=== PATIENT | female | born 1980 | race Caucasian/White ===

== ENCOUNTER 2023-10-12 20:43 | Outpatient (CLI) | payer OTHER, SELFPAY ==
[2023-10-12 16:05] LABS: Abs Immature Grans 0.02 10^3/uL (0.0-0.06); Absolute Basophil Count 0.04 10^3/uL (0.0-0.2); Absolute Eosinophil Count 0.04 10^3/uL (0.0-0.7); Absolute Lymphocyte Count 1.39 10^3/uL (1.2-3.4); Absolute Monocyte Count 0.46 10^3/uL (0.1-0.8); Absolute Neutrophil Count 3.82 10^3/uL (1.2-6.7); Basophils % 0.7; Eosinophils % 0.7; HGB 12.8 g/dL (11.2-15.7); Immature Grans % 0.3; Lymphocytes % 24.1; MCH 30.1 pg (27.0-33.0); MCHC 34.6 % (32.0-36.0); MCV 87 fL (80-95); MPV 10.1 fL (8.0-11.0); Neutrophils % 66.2; Platelet Count 190 10^3/uL (130-400); RBC 4.25 10^6/uL (3.93-5.22); RDW 12.1 % (11.7-14.6); WBC 5.77 10^3/uL (4.4-10.8)
[2023-10-12 16:06] LABS: Bilirubin Negative (Negative); Blood Negative (Negative); Clarity Clear (Clear); Glucose Negative (Negative); Ketones Trace mg/dL (Negative); Leukocyte Esterase Negative (Negative); Nitrite Negative (Negative)
[2023-10-14 12:38] LABS: C3 Complement 69 mg/dL (81-157); C4 Complement 10 mg/dL (13-39)
[2023-10-16 12:08] LABS: dsDNA Ab, IgG 253.5 IU/mL (<30.0)
[2023-10-16 13:08] LABS: SS-A Antibody 113.3 Units (<20.0); SS-B (La) Ab, IgG 2.7 Units (<20.0)
== END 2023-10-12 20:44 | disposition home or self-care (01) ==
LOC: LBO 20:44
PROVIDERS: Visit Provider Internal Medicine Rheumatology
DX: M35.9 Systemic involvement of connective tissue, unspecified (principal); R76.8 Other specified abnormal immunological findings in serum
CPT/HCPCS: 36415; 81003; 85025; 86160; 86225; 86235

== ENCOUNTER 2024-10-11 04:27 | Outpatient (CLI) | payer OTHER, SELFPAY ==
[2024-10-11 08:50] LABS: Absolute Basophil Count 0.03 10^3/uL (0.0-0.2); Absolute Eosinophil Count 0.05 10^3/uL (0.0-0.7); Absolute Lymphocyte Count 0.79 10^3/uL (1.2-3.4); Absolute Monocyte Count 0.35 10^3/uL (0.1-0.8); Absolute Neutrophil Count 1.93 10^3/uL (1.2-6.7); Eosinophils % 1.6 %; HCT 37.5 % (36.0-46.0); HGB 12.9 g/dL (11.2-15.7); Lymphocytes % 25.1 %; MCH 30.9 pg (27.0-33.0); MCHC 34.4 % (32.0-36.0); MCV 90 fL (80-95); MPV 9.9 fL (8.0-11.0); Monocytes % 11.1 %; Neutrophils % 61.2 %; Platelet Count 177 10^3/uL (130-400); RBC 4.17 10^6/uL (3.93-5.22); RDW 11.7 % (11.7-14.6); RDW-SD 37.8 fL; WBC 3.15 10^3/uL (4.4-10.8)
[2024-10-11 09:04] LABS: Bilirubin Negative (Negative); Blood Moderate (Negative); Clarity Clear (Clear); Glucose Negative (Negative); Ketones Negative (Negative); Leukocyte Esterase Trace (Negative); Nitrite Negative (Negative); Specific Gravity 1.015 (1.005-1.025); Urobilinogen 0.2 mg/dL (Up to 0.2)
[2024-10-11 09:07] LABS: ALT 20 U/L (14-59); AST 16 U/L (15-37); Alkaline Phosphatase 68 U/L (46-116); Anion Gap 7.1 mmol/L (3-11); BUN 15 mg/dL (7-18); Bilirubin, Total 0.76 mg/dL (0.2-1.0); CO2 28.9 mmol/L (21.0-32.0); CREATININE 0.7 mg/dL (0.55-1.02); Calcium 9.4 mg/dL (8.5-10.1); Calculated LDL 88 mg/dL (<100); Chloride 105 mmol/L (98-107); Cholesterol 186 mg/dL (<200); Glucose 67 mg/dL (74-106); HDL Cholesterol 87 mg/dL (40-60); Potassium 4.1 mmol/L (3.5-5.1); Sodium 141 mmol/L (136-145); Total Protein 7.2 g/dL (6.4-8.2); Triglyceride 55 mg/dL (<150)
[2024-10-11 09:13] LABS: Bacteria Negative HPF (Negative); Crystals Negative HPF (Negative); Epithelial Cells Many HPF (Negative); Mucus Negative (Negative); RBC 0-2 HPF (0-2); WBC 0-2 HPF (0-5)
[2024-10-11 09:14] LABS: C & S Indicated? No/Sq. Contamination; Casts Negative LPF (Negative)
[2024-10-12 10:52] LABS: C3 Complement 60 mg/dL (81-157); C4 Complement 7 mg/dL (13-39)
[2024-10-12 15:38] LABS: dsDNA Ab, IgG 91.9 IU/mL (<27.0)
== END 2024-10-11 04:28 | disposition home or self-care (01) ==
LOC: LBO 04:27
PROVIDERS: Family Medicine; Visit Provider Internal Medicine Rheumatology
DX: Z13.6 Encounter for screening for cardiovascular disorders (principal); M32.9 Systemic lupus erythematosus, unspecified
CPT/HCPCS: 36415; 80053; 80061; 81003; 81015; 85025; 86160; 86225

== ENCOUNTER 2024-11-01 11:37 | Outpatient (REF) | payer OTHER, SELFPAY ==
--- NOTE | 2024-11-01 11:15 | PAPFT_PTH ---
PATIENT: Sally Melton LOC: [facility] U#:[id number] AGE/SX: 44/F ROOM: RE11/01/[address]: Patricia Hernandes MD : [id number] BED: DIS: 11/01/2024 SPEC #: [id number] RECD: 11/01/24 12:54 STATUS: DONNA REQ #: [id number] BATOOL: 11/01/24 11:[address]: Patricia Hernandes DEPT: [facility] Cytology RECD BY: Isi Ortiz ENTERED: 11/01/24 12:54 SP TYPE: PAPFT BRIAN DR: Unknown,Unknown Tissues: 1 - CX/ENDOCX FOR PAP SMEARS Procedures: PAP THIN PREP/[facility] Screening HPV DNA PROBE Comments: [id number] (HPV 16 & 18/45)
== END 2024-11-01 11:38 | disposition home or self-care (01) ==
LOC: LBN 11:37
PROVIDERS: Visit Provider Obstetrics & Gynecology
DX: Z97.5 Presence of (intrauterine) contraceptive device (principal); Z12.4 Encounter for screening for malignant neoplasm of cervix
CPT/HCPCS: 88142; 87624

== ENCOUNTER 2025-03-01 17:04 | Outpatient (REF) | payer OTHER, SELFPAY ==
[2025-03-01 20:21] LABS: Bilirubin Negative (Negative); Blood Negative (Negative); Clarity Clear (Clear); Glucose Negative (Negative); Ketones Negative (Negative); Leukocyte Esterase Negative (Negative); Nitrite Negative (Negative); Urobilinogen 0.2 mg/dL (Up to 0.2)
== END 2025-03-01 17:05 | disposition home or self-care (01) ==
LOC: NCHCN 17:04
PROVIDERS: Visit Provider Family Medicine
DX: R10.9 Unspecified abdominal pain (principal)
CPT/HCPCS: 81003

== ENCOUNTER 2025-09-07 04:03 | Outpatient (CLI) | payer OTHER, SELFPAY ==
[2025-09-07 12:12] LABS: Abs Immature Grans 0.02 10^3/uL (0.0-0.06); HCT 37.9 % (36.0-46.0); HGB 13.2 g/dL (11.2-15.7); Immature Grans % 0.3 %; MCH 31.2 pg (27.0-33.0); MCHC 34.8 % (32.0-36.0); MCV 90 fL (80-95); MPV 10.0 fL (8.0-11.0); Platelet Count 178 10^3/uL (130-400); RBC 4.23 10^6/uL (3.93-5.22); RDW 11.5 % (11.7-14.6); RDW-SD 37.2 fL; WBC 7.34 10^3/uL (4.4-10.8)
[2025-09-07 12:19] LABS: Glucose Negative (Negative)
[2025-09-07 12:41] LABS: ALT 21 U/L (14-59); AST 20 U/L (15-37); Albumin 4.5 g/dL (3.4-5.0); Alkaline Phosphatase 66 U/L (46-116); Anion Gap 6.7 mmol/L (3-11); BUN 13 mg/dL (7-18); Bilirubin, Total 0.9 mg/dL (0.2-1.0); CO2 30.3 mmol/L (21.0-32.0); Calcium 9.1 mg/dL (8.5-10.1); Chloride 102 mmol/L (98-107); Estimated GFR 112.73 (mL/min/1.73m2); Glucose 108 mg/dL (74-106); Potassium 4.2 mmol/L (3.5-5.1); Sodium 139 mmol/L (136-145); Total Protein 7.2 g/dL (6.4-8.2)
[2025-09-08 12:09] LABS: dsDNA Ab, IgG 75.3 IU/mL (<27.0)
== END 2025-09-07 04:04 | disposition home or self-care (01) ==
LOC: LBO 04:03
PROVIDERS: PCP Family Medicine; Visit Provider Internal Medicine Rheumatology
DX: M32.9 Systemic lupus erythematosus, unspecified (principal)
CPT/HCPCS: 36415; 80053; 81003; 85025; 86160; 86225